=== PATIENT | female | born 1955 | race Caucasian/White ===

== ENCOUNTER → 2021-11-12 | Day surgery (SDC) | payer MEDICARE, OTHER ==
[~2021-11-12] MED LIST: ALEN70TA71 PO; ASPI81TA59 PO; ATOR40TA59 PO; CALCIUM PO; CHOL10004 PO; FAMO20TA5 PO; HYDR-2145 PO; IPRATRPIUM/ALBUTEROL 0.5/2.5MG 3 ML NEBU. NEB PRN; IV RINGERS SOLUTION,LACTATED 1,000 ML IV SCH; LIDOCAINE 2% PF 5 ML VIAL. ONE; MELO15TA23 PO; MIDAZOLAM HCL PF 2 MG/2 ML VIAL. IV ONE; MULTIVITAMIN PO; ONDANSETRON PF 4 MG/2 ML VIAL. IV PRN; PROPOFOL 10,000 MCG/ML (20ML) VIAL IV ONE; UBID200C27 PO; VERAPAMIL ER PO
[2021-11-12 11:47] VITALS: BP 129/84
== END | disposition home or self-care (01) ==
LOC: SURG 09:17
PROVIDERS: ATTEND Internal Medicine Gastroenterology
DX: Z12.11 Encounter for screening for malignant neoplasm of colon (principal); K57.30 Diverticulosis of large intestine without perforation or abscess without bleeding; M19.90 Unspecified osteoarthritis, unspecified site; M85.80 Other specified disorders of bone density and structure, unspecified site; K21.9 Gastro-esophageal reflux disease without esophagitis; E78.5 Hyperlipidemia, unspecified; Z90.11 Acquired absence of right breast and nipple; Z98.890 Other specified postprocedural states; Z79.899 Other long term (current) drug therapy; Z88.8 Allergy status to other drugs, medicaments and biological substances; Z85.3 Personal history of malignant neoplasm of breast; Z79.82 Long term (current) use of aspirin; Z72.89 Other problems related to lifestyle
CPT/HCPCS: G0121; J2001; J2704; G0105